=== PATIENT | female | born 1985 | race Hispanic/Latino ===

== ENCOUNTER 2017-12-19 15:06 | Day surgery (SDC) | payer MEDICAID, OTHER, SELFPAY ==
[2017-12-19 15:55] VITALS: TEMP 99.5
[2017-12-19 16:02] VITALS: BP 111/56; BMI 27.5
--- NOTE | 2017-12-19 16:23 | PDOC.FPROB ---
Addendum entered and electronically signed by Kylee Maki MD 12/19/17 18: 40: - LFTs normal. Bile acids pending. Will discharge patient with Urodiol. Discussed pt with Dr. Zhang who agrees with the plan and recommended followup in [place] in 1 week. - Discussed with patient the importance of routine follow-up and delivery with MFM in [place]. I advised pt to call tomorrow to make an appointment for both MFM and PNC. Pt expressed understanding. Ocular Care Aide line was used in order to ensure that nothing was lost in translation. Original Note: FMR OB H&P: HPI - History of Present Illness Chief Complaint: pruritus, sent from [facility] for cholestasis rule out Indentification: 32 year old @ 36.4 weeks History of Present Illness: Citlaly Guzmán is a 32 year old @ 36.4 by LMP c/w 25.6 wk sono. Primary Care Physician: ESTELA Moreland FMR OB H&P: Current - Care : 3 Para: 2 Gestational age: 36.4 Due date: 01/12/2018 Dating Criteria: 25.6 wk sono - OB Labs Blood type: O RH: positive Antibody Screen: negative HIV: negative RPR: negative HepBsAg: negative Rubella: immune Gonorrhea: negative Chlamydia: negative Pap Smear: Negative in 04/2017 1 hour gtt: 131 GBS: unknown H&H: 10.7/30.8 Platelets: 185 - Anatomy Survey Anatomy survey: Cystic adenoid malformation, intraabdominal calcifications LIVIA normal Posterior placenta FMR OB H&P: History - Past Medical History PMH: None - OB History OB History: Prior history of cholestasis in another - 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 - Surgical History Sx History: None - Social History Social History: Denies alcohol, tobacco, and drug use. Lives with and 2 children - Family History Family History: None FMR OB H&P: Medications - Current Home Medications: Medication Instructions Recorded Confirmed Type Pnv No.95/Ferrous Fum/Folic AC 1 tab PO DAILY 04/21/15 12/19/17 History [ Tablet] Ursodiol 300 mg PO BID #60 capsule 12/19/17 Rx Allergies/Adverse Reactions: Allergies Allergy/AdvReac Type Severity Reaction Status Date / Time No Known Allergies Allergy Verified 04/21/15 22:38 FMR OB H&P: ROS - Review of Systems General: denies: fever/chills ENT: denies: nasal congestion Cardiovascular: denies: chest pain Gastrointestinal: denies: abdominal pain Genitourinary (Female): reports: vaginal pressure Neurologic: denies: seizures Integumentary: reports: itching FMR OB H&P: Vital Signs - Maternal Vital signs: Vital Signs - First Documented Temp Pulse Resp BP Pulse Ox 99.5 F 110 H 16 117/58 L 95 12/19/17 15:40 12/19/17 15:40 12/19/17 15:40 12/19/17 15:40 12/19/17 15:40 - Heart Tones Baseline: 150 Variability: moderate Acceleration: present Deceleration: absent Category: category 1 [place] contractions every: absent FMR OB H&P: Physical Exam - Physical Exam General: NAD HEENT: normocephalic and atraumatic, MMM Heart: RRR, normal S1/S2 General: CTAB, no respiratory distress Abdomen: soft, gravid Musculoskeletal: FROM in all four extremities Neurological: cranial nerves II through XII intact, DTR +2, no clonus FMR OB H&P: A/P - Problem List (1) Pruritus Status: Acute Code(s): L29.9 - PRURITUS, UNSPECIFIED Assessment and Plan: Concern for cholestasis, given pt's history of cholestasis in prior . Will order Bile acids, and LFTs to determine. Dr Tracy has discussed this case with Dr. Zhang ([facility]) who recommends transfer to [place] for delivery if labs are abnormal. Discussion: Date/Time: 12/19/171622 This H&P was discussed with Dr. Tracy who agrees with the above documentation and plan. Attending Addendum - Attending Addendum Date/Time: 12/19/171948 I personally evaluated the patient and discussed the management with Dr. Maki I agree with the History, Examination, Assessment and Plan documented above with any addition or exceptions noted below. Pt presented to [facility] today with diffuse itching at 36w4d. No rash. 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 Pt discussed with Dr. Zhang of [place] [facility] who agreed with clinical symptoms and past complicated by cholestasis pt should be evaluated and delivered if evidence of cholestasis is found. LFTs normal. Bile acids will take approximately 1 week to result. Will start ursodiol empirically and have pt followup in [place] in 1 week.
[2017-12-19 16:54] LABS: ALT (SGPT) Less than 7 U/L (8-55); AST (SGOT) 16 U/L (5-34); Albumin 3.3 g/dL (3.5-5.0); Alkaline Phosphatase 367 U/L (40-150); Anion Gap 11 mmol/L (10-20); BUN (Urea Nitrogen) 7 mg/dL (7.0-18.7); Bilirubin, Total 0.4 mg/dL (0.2-1.2); Calc. Creatinine Clearance 146 mL/min (70-130); Carbon Dioxide 21 mmol/L (22-29); Chloride 107 mmol/L (98-107); Estimated GFR-MDRD Greater than 90; Globulin 3.9 g/dL (2.4-3.5); Glucose 89 mg/dL (70-105); Potassium 3.7 mmol/L (3.5-5.1); Protein, Total 7.2 g/dL (6.0-8.3); Sodium 135 mmol/L (136-145)
== END 2017-12-19 18:32 | disposition home or self-care (01) ==
LOC: L&D/OP 15:06
PROVIDERS: ATTEND Family Medicine
DX: O26.893 Other specified pregnancy related conditions, third trimester (principal); Z3A.36 36 weeks gestation of pregnancy
CPT/HCPCS: 36415; 80053; 82239

== ENCOUNTER 2019-09-15 06:41 | Emergency (ER) | payer OTHER, SELFPAY ==
[2019-09-15] MEDS ORDERED: Ondansetron PF 4 MG/2 ML Vial ONE (07:37)
[2019-09-15] MEDS ORDERED: Morphine 4 MG/ML VIAL ONE (07:37)
[2019-09-15 07:51] LABS: BHCG - Serum POSITIVE (NEGATIVE); Pregs Control Background? CLEAR/WHITE (CLR/WHITE); Pregs Control Bar Appear? YES (CONTROL BAR)
--- NOTE | 2019-09-15 07:53 | ULT ---
Sonogram right upper quadrant HISTORY: Right upper quadrant pain. FINDINGS: Gallbladder is well distended and shows internal non-shadowing stones and debris. No gallbl adder wall thickening or pericholecystic fluid. Patient was reportedly not tender over the gallbladder fossa at the time of the exam. Liver is diffusely echogenic without focal mass or intrahepatic biliary dilatation. No free fluid. IMPRESSION : Cholelithiasis. No evidence of acute biliary obstruction. Hepato-steatosis.
[2019-09-15 07:55] LABS: #Lymphocytes 2.2 thou/uL (1.20-3.40); #Monocytes 0.2 thou/uL (0.11-0.59); #Neutrophils 2.3 thou/uL (1.40-6.50); %Basophils 0.4 % (0.0-1.0); %Eosinophils 0.5 % (0.0-10.0); %Lymphocytes 46.4 % (21.0-51.0); %Neutrophils 47.8 % (42.0-75.0); Hemoglobin 14.1 g/dL (12.0-16.0); Mean Corpuscular HGB CONC 35.1 g/dL (32.0-36.0); Mean Corpuscular Hemoglobin 33.1 pg (27.0-31.0); Mean Corpuscular Volume 94.2 fL (78.0-98.0); Mean Platelet Volume 8.7 fL (7.4-10.4); Platelet Count 177 thou/uL (130-400); RBC Distribution Width 11.2 % (11.5-14.5); Red Blood Cell (RBC) Count 4.27 mill/uL (4.20-5.40); White Blood Cell (WBC) Count 4.8 thou/uL (4.8-10.8)
[2019-09-15 08:13] LABS: ALT (SGPT) 30 U/L (8-55); AST (SGOT) 29 U/L (5-34); Albumin 3.7 g/dL (3.5-5.0); Alkaline Phosphatase 128 U/L (40-110); Anion Gap 10 mmol/L (10-20); BUN (Urea Nitrogen) 8 mg/dL (7.0-18.7); Bilirubin, Total 0.4 mg/dL (0.2-1.2); Calc. Creatinine Clearance 0 mL/min (70-130); Calcium 8.9 mg/dL (7.8-10.44); Carbon Dioxide 22 mmol/L (22-29); Chloride 107 mmol/L (98-107); Estimated GFR-MDRD Greater than 90; Globulin 3.6 g/dL (2.4-3.5); Glucose 101 mg/dL (70-105); Lipase 49 U/L (8-78); Potassium 3.1 mmol/L (3.5-5.1); Protein, Total 7.3 g/dL (6.0-8.3); Sodium 136 mmol/L (136-145)
[2019-09-15] MEDS ORDERED: Potassium Chloride 20 MEQ TAB ONE (08:52)
== END 2019-09-15 09:38 | disposition home or self-care (01) ==
LOC: ERS 06:41
DX: E87.6 Hypokalemia (principal); R11.2 Nausea with vomiting, unspecified; R10.816 Epigastric abdominal tenderness; R10.811 Right upper quadrant abdominal tenderness; Z33.1 Pregnant state, incidental
CPT/HCPCS: 36415; 76705; 80053; 83690; 84484; 84703; 85025; 93005; 96361; 96374; 96375; J2270; J2405

== ENCOUNTER 2019-10-18 20:41 | Emergency (ER) | payer SELFPAY ==
[2019-10-18 21:19] LABS: Bilirubin Negative (Negative); Blood, Urine Negative (Negative); Clarity Clear (Clear); Glucose, Urine (Dipstick) Normal (Negative); Ketone, Urine 80 mg/dL (Negative); Leukocyte 75 Leu/uL (Negative); Nitrite Negative (Negative); Protein, Urine (Dipstick) 30 mg/dL (Neg-Trace); RBC/HPF 0-3 HPF (0-3); Specific Gravity, Urine 1.031 (1.002-1.036); Urobilinogen 3 mg/dL (Less than 2); WBC/HPF 0-3 HPF (0-3); pH, Urine 6.5 (5.0-9.0)
[2019-10-18 21:20] LABS: Bacteria/HPF Rare-Few HPF (None Seen)
[2019-10-18 21:28] LABS: #Eosinphils 0.1 thou/uL (0.0-0.7); #Lymphocytes 1.8 thou/uL (1.20-3.40); #Monocytes 0.3 thou/uL (0.11-0.59); #Neutrophils 5.8 thou/uL (1.40-6.50); %Basophils 0.3 % (0.0-1.0); %Lymphocytes 22.3 % (21.0-51.0); %Monocytes 4.2 % (0.0-10.0); %Neutrophils 72.2 % (42.0-75.0); Hemoglobin 13.3 g/dL (12.0-16.0); Mean Corpuscular HGB CONC 34.9 g/dL (32.0-36.0); Mean Corpuscular Hemoglobin 33.6 pg (27.0-31.0); Mean Corpuscular Volume 96.1 fL (78.0-98.0); Mean Platelet Volume 8.6 fL (7.4-10.4); Platelet Count 206 thou/uL (130-400); RBC Distribution Width 12.1 % (11.5-14.5); Red Blood Cell (RBC) Count 3.97 mill/uL (4.20-5.40)
[2019-10-18 21:47] LABS: ALT (SGPT) 15 U/L (8-55); AST (SGOT) 19 U/L (5-34); Albumin 3.9 g/dL (3.5-5.0); Alkaline Phosphatase 105 U/L (40-110); Anion Gap 13 mmol/L (10-20); BUN (Urea Nitrogen) 10 mg/dL (7.0-18.7); Bilirubin, Total 0.3 mg/dL (0.2-1.2); Calc. Creatinine Clearance 0 mL/min (70-130); Calcium 8.9 mg/dL (7.8-10.44); Carbon Dioxide 21 mmol/L (22-29); Chloride 105 mmol/L (98-107); Estimated GFR-MDRD Greater than 90; Globulin 3.7 g/dL (2.4-3.5); Glucose 94 mg/dL (70-105); Potassium 3.3 mmol/L (3.5-5.1); Protein, Total 7.6 g/dL (6.0-8.3); Sodium 136 mmol/L (136-145)
[2019-10-18] MEDS ORDERED: Potassium Chloride 20 MEQ TAB ONE (22:14)
--- NOTE | 2019-10-18 23:06 | ULT ---
EXAM: OB ultrasound COMPARISON: None HISTORY: female with abdominal pain TECHNIQUE: Multiplanar grayscale and color Doppler images were obtained in a transabdominal ult rasound. FINDINGS: There is a single live intrauterine with heart rate of 150 bpm. A limited s urvey was performed which is unremarkable. Estimated weight is 153 g. Average age of the fetus based off today's examination is 16 weeks 3 days. BPD 3.52 cm -- 16 weeks 6 days HC 12.56 cm -- 16 weeks 2 days AC 10.40 cm -- 16 weeks 3 days FL 2.11 cm -- 16 weeks 2 days The placenta is anterior and to the mother's left in location without focal abnormality. A few placen [place]anne lakes are seen within the placenta. Amniotic fluid volume is subjectively within normal limits. The cervix is normal in length. There is no evidence of placenta previa. IMPRESSION: Single live intrauterine with estimated age of 16 weeks 3 days.
== END 2019-10-19 00:06 | disposition home or self-care (01) ==
LOC: ERS 20:41
DX: O99.282 Endocrine, nutritional and metabolic diseases complicating pregnancy, second trimester (principal); E87.6 Hypokalemia; O21.9 Vomiting of pregnancy, unspecified; Z3A.16 16 weeks gestation of pregnancy
CPT/HCPCS: 36415; 76815; 80053; 81003; 81015; 84702; 85025; 87040; 87077; 87149; 96360; 96361

== ENCOUNTER 2020-03-05 22:49 | Day surgery (SDC) | payer MEDICAID ==
--- NOTE | 2020-03-06 00:24 | PDOC.LDHP ---
Labor and Delivery H&P Chief complaint: contractions HPI: 34yo @36.3wks w/ pmhx of A2GDM presents to L&D with complaint of contractions. States started at 7pm and became painful in her back and as close as 10 minutes apart prompting her to seek eval. Denies any vaginal bleeding/discharge, LOF, urinary or bowel changes. Denies any recent illness. Current gestational age (weeks): 36 (.3) Due date: 03/31/20 Dating criteria: second trimester ultrasound Grav: 4 Para: 3 Current complications: gestational diabetes Current medications: pre- vitamins Allergies/Adverse Reactions: Allergies Allergy/AdvReac Type Severity Reaction Status Date / Time No Known Allergies Allergy Verified 04/21/15 22:38 Social history: none - Physical Exam Vital signs reviewed and normal: yes General: breathing through contractions Heart: RRR Lungs: CTAB Abdomen: NTTP Extremeties: no edema FHT: category 1, variability present [place] contractions every: 4-8min - Vaginal Exam cm dilated: 1 Effacement: 50% Station: -2 - OB Labs Blood type: unknown RH: unknown Antibody Screen: unknown HIV: unknown RPR: unknown HEPSAg: unknown 1 hour GCT: unknown GBS: unknown - Assessment 34 yo with A2GDM @ 36.3 wga who presents to L&D with complaints of contractions. - Plan -: Contractions - SVE on arrival closed/thick/high - ctx: > 5min apart on toco - FHT: Cat 1 - unchanged after 2 hours, will send home with precautions on when to return to L&D Back pain - will give 1000 mg of Tylenol - encouraged tylenol and heating pad at home. Addendum - Attending - Attending Attestation Date/Time: 03/06/20 2801 I personally evaluated the patient and discussed the management with Dr. Street. I agree with the History, Examination, Assessment and Plan documented above.
[2020-03-06] MEDS ORDERED: hydrALAZINE 20 MG/ML VIAL SLOW IVP PRN (00:27)
[2020-03-06] MEDS ORDERED: Acetaminophen 500 MG TAB PO SCH (01:15)
[2020-03-06] MEDS ORDERED: FLU VACC QS2020-21(6MOS UP)/PF 60 MCG/0.5 ML SYRINGE IM ONE (09:00)
== END 2020-03-06 01:25 | disposition home or self-care (01) ==
LOC: L&D/OP 22:49
PROVIDERS: ATTEND Obstetrics & Gynecology
DX: O47.03 False labor before 37 completed weeks of gestation, third trimester (principal); O99.891 Other specified diseases and conditions complicating pregnancy; M54.9 Dorsalgia, unspecified; O24.419 Gestational diabetes mellitus in pregnancy, unspecified control; Z3A.36 36 weeks gestation of pregnancy
CPT/HCPCS: 99283

== ENCOUNTER 2020-03-22 11:58 | Outpatient (CLI) | payer SELFPAY ==
[2020-03-23 06:33] LABS: SARS-CoV-2 MS2 Positive; SARS-CoV-2 N Gene Negative; SARS-CoV-2 S Gene Negative; SARS-CoV-2 by NAA Not Detected (NotDetected); SARS-CoV-2 orf1ab Negative
== END 2020-03-22 11:59 | disposition home or self-care (01) ==
LOC: LABBT 11:58
PROVIDERS: ATTEND Student in an Organized Health Care Education/Training Program
DX: Z01.812 Encounter for preprocedural laboratory examination (principal); Z20.822 Contact with and (suspected) exposure to COVID-19
CPT/HCPCS: 87635; U0003

== ENCOUNTER 2020-03-24 05:24 | Inpatient (IN) | payer MEDICAID, OTHER, SELFPAY ==
[2020-03-24] MEDS ORDERED: Lidocaine 1% (PF) 30 ML VIAL SC PRN (06:25)
[2020-03-24] MEDS ORDERED: hydrALAZINE 20 MG/ML VIAL SLOW IVP PRN (06:25)
[2020-03-24] MEDS ORDERED: Methylergonovine 0.2 MG/ML VIAL IM PRN (06:25)
[2020-03-24] MEDS ORDERED: Misoprostol 200 MCG TAB PR PRN (06:25)
[2020-03-24] MEDS ORDERED: Ondansetron PF 4 MG/2 ML Vial IVP PRN ×2 (06:25→14:44)
[2020-03-24] MEDS ORDERED: Carboprost 250 MCG/ML AMP IM PRN (06:25)
[2020-03-24] MEDS ORDERED: Promethazine HCl 25 MG/ML VIAL IM PRN ×2 (06:25→14:44)
[2020-03-24] MEDS ORDERED: Misoprostol 100 MCG TAB VAG SCH (06:30)
[2020-03-24] MEDS: Lactated Ringer's 1,000 ML IV SCH ×3 (06:30→23:30)
[2020-03-24] MEDS ORDERED: Penicillin G Potassium 5 MILL.UNITS in Sodium Chloride 0.9% 100 ML IVPB SCH (06:30)
--- NOTE | 2020-03-24 06:58 | PDOC.FPRHP ---
- History of Present Illness Chief Complaint: mIOL due to A1GDM History of Present Illness: 34 yo at 39wks by 16.3wk US presenting for mIOL due to A1GDM. Patient is feeling baby move, denies LOF, bleeding or vaginal discharge. She reports no problems during this . Patient says she checks her blood sugars after dinner every night and they are typically 117-120 and never higher than 120. - Allergies/Adverse Reactions Allergies Allergy/AdvReac Type Severity Reaction Status Date / Time No Known Allergies Allergy Verified 04/21/15 22:38 - Home Medications Medication Instructions Recorded Confirmed Type Pnv No.95/Ferrous Fum/Folic AC 1 tab PO DAILY 04/21/15 12/19/17 History [ Tablet] Ursodiol 300 mg PO BID #60 capsule 12/19/17 Rx - History PMHx: cholestasis of , A1GDM, Hx of macrosomia, hx of ASCUS (2014), Hx of HSV1 PSHx: None FHx: Non-contributory Social: Denies alcohol, tobacco, drug use - Vital signs BP: [] HR: [] RR: [] Tmax: [] Pox: []% on [] Wt: [] FMR H&P: Upper Level - Plan Date/Time: 03/24/20 0654 I, [], have evaluated this patient and agree with findings/plan as outlined by director internal control resident. Pertinent changes/additions are listed here.
--- NOTE | 2020-03-24 07:07 | PDOC.FPROB ---
FMR OB H&P: HPI - History of Present Illness Chief Complaint: mIOL due to A1GDM History of Present Illness: 34 yo at 39wks by 16.3wk US presenting for mIOL due to A1GDM. Patient is feeling baby move, denies LOF, bleeding or vaginal discharge. She reports no problems during this . Patient says she checks her blood sugars after dinner every night and they are typically 117-120 and never higher than 120. Primary Care Physician: ESTELA Amado FMR OB H&P: Current - Care : 4 Para: 3003 Gestational age: 39.0 wks Due date: 03/31/2020 Dating Criteria: 16.3 wk sono Course/Complications: Cholestasis of , A1GDM, Hx of macrosomia, Hx of ASCUS (2014), Hx of HSV1 - OB Labs Blood type: O RH: positive Antibody Screen: negative HIV: negative RPR: negative HepBsAg: negative Rubella: immune Quad screen: unknown Urine drug screen: not done Gonorrhea: negative Chlamydia: negative Pap Smear: NILM, HPV + (not 16 or 18) 3 hour GTT: 2hr: 95,155,120 A1c: 4.8 GBS: positive H&H: 02/15.9 Platelets: 181 - Additional Ultrasound Additional: 12/03/2019 (MFM): placental lakes 03/05/2020: [place] 82.8%, left lateral placenta FMR OB H&P: History - Past Medical History PMH: cholestasis of in previous two pregnancies which were reason for induction - OB History OB History: 3 prior full term vaginal deliveries, Hx of 4th degree laceration - 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 Recommended repeat cotesting in 3 years. - Surgical History Sx History: None - Social History Social History: Denies tobacco, alcohol, or drug use - Family History Family History: Non-contributory FMR OB H&P: Medications - Current Home Medications: Medication Instructions Recorded Confirmed Type Pnv No.95/Ferrous Fum/Folic AC 1 tab PO DAILY 04/21/15 03/24/20 History [ Tablet] Allergies/Adverse Reactions: Allergies Allergy/AdvReac Type Severity Reaction Status Date / Time No Known Allergies Allergy Verified 04/21/15 22:38 FMR OB H&P: ROS - Review of Systems General: denies: fever/chills Eyes: denies: vision changes ENT: denies: nasal congestion, rhinorrhea Cardiovascular: denies: chest pain, edema Respiratory: denies: cough, congestion, shortness of breath Gastrointestinal: denies: abdominal pain, nausea, vomiting Genitourinary (Female): denies: dysuria, vaginal discharge, vaginal bleeding, contractions Musculoskeletal: denies: tenderness Neurologic: denies: weakness, headache Integumentary: denies: rash Endocrine: denies: polyuria Hematologic/Lymphatic: denies: prolonged or excessive bleeding FMR OB H&P: Vital Signs - Maternal Vital signs: BP 122/65 - Heart Tones Baseline: 130 Variability: moderate Acceleration: present Deceleration: absent Category: category 1 FMR OB H&P: Physical Exam - Physical Exam General: NAD, awake, alert and oriented HEENT: normocephalic and atraumatic, grossly normal vision, grossly normal hearing Neck: FROM Heart: RRR, no murmurs/rubs/gallops, pulses present, no edema General: CTAB, no respiratory distress Abdomen: soft, gravid, non-tender Musculoskeletal: FROM in all four extremities Neurological: no focal deficit Skin: no rash Lymphatic: no unusual bruising or bleeding Psychiatric: intact recent and remote memory, good judgement and insight, normal mood and affect - Pelvic Exam Vulva: normal hair distribution, no lesions, no blood SVE: 1/thick/-2 Lawson score: 4 Membranes: intact FMR OB H&P: A/P Discussion: Date/Time: 03/24/20 0706 34 yo presenting at 39.0wks by 16.3wk sono presenting for mIOL for A1GDM. mIOL 2/2 A1GDM -FHT 130, cat 1 tracing -1/thick/-2 @0750 -cytotec placed A1GDM -A1C 4.8 -Patient reports postprandial dinner glucose readings are 117-120 Cholestasis of -Reason for induction in two prior pregnancies -Has been experiencing increasing itching this , bile acid and CMP wnl on 02/25. Bile acid from 03/17 pending. Hx of Macrosomia -Clinic documentation states 9-10lb baby -[employer] reviewed. 2 deliveries here were 6lb babies, unsure where third baby was delivered. 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 Carpenter who agree with the above documentation and plan.
[2020-03-24 07:11] VITALS: BMI 29.5
[2020-03-24 07:16] LABS: Hemoglobin 11.2 g/dL (12.0-16.0); Mean Corpuscular HGB CONC 33.3 g/dL (32.0-36.0); Mean Corpuscular Hemoglobin 30.7 pg (27.0-31.0); Mean Corpuscular Volume 92.3 fL (78.0-98.0); Platelet Count 187 thou/uL (130-400); Red Blood Cell (RBC) Count 3.65 mill/uL (4.20-5.40); White Blood Cell (WBC) Count 6.6 thou/uL (4.8-10.8)
[2020-03-24 07:58] LABS: HBSAg Index 0.13 S/CO (0-0.99); Hep B Surf Ag Non-Reactive S/CO (NonReactive)
[2020-03-24 07:59] LABS: Syphilis Antibody Nonreactive (Nonreactive); Syphilis Antibody Index 0.03 S/CO (<1.00 Non-Reactive)
[2020-03-24] MEDS: Penicillin G 2.5 MILL.units 2.5 MILL.UNITS in Premix Bag 1 BAG IVPB SCH ×4 (11:30→23:30)
[2020-03-24] MEDS ORDERED: Bupivacaine 0.25% HCL 30 ML VIAL ONE (11:41)
--- NOTE | 2020-03-24 12:04 | PDOC.LDPN ---
Labor & Delivery Progress Note - Subjective Subjective: comfortable - Objective Vital signs reviewed and normal: yes General: NAD, resting SVE: 1/thick/-2 Dilation: 1 Effacement: 0% Station: -1 FHT: category 1, acceleration absent, absent or minimal variables [place] contractions every: 2-3 minutes Plan: continue plan of care -: 34 yo presenting at 39.0wks by 16.3wk sono presenting for mIOL for A1GDM. mIOL 2/2 A1GDM -FHT 130, cat 1 tracing -1/thick/-2 @0750 -cytotec #1 placed 0515 -1/thick/-2 @1150. Cat 1 tracing, edwina ~2-[address] 2nd cytotec. Nursing will continue to monitor contractions. Will place balloon at this time. A1GDM -A1C 4.8 -Patient reports postprandial dinner glucose readings are 117-120 Cholestasis of -Reason for induction in two prior pregnancies -Has been experiencing increasing itching this , bile acid and CMP wnl on 02/25. Bile acid from 03/17 pending. Hx of Macrosomia -Clinic documentation states 9-10lb baby -[employer] reviewed. 2 deliveries here were 6lb babies, unsure where third baby was delivered. 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
[2020-03-24] MEDS ORDERED: Butorphanol Tartrate 1 MG/ML VIAL ONE (12:31)
[2020-03-24] MEDS: Butorphanol Tartrate 1 MG/ML VIAL SLOW IVP PRN ×2 (12:35→13:59)
[2020-03-24] MEDS ORDERED: Fentanyl 4 mcg/Bup 0.1% Cadd 100 ML ONE ×2 (13:57→22:09)
[2020-03-24] MEDS ORDERED: Naloxone HCl 0.4 mg/ml Vial IVP PRN ×2 (14:44)
[2020-03-24] MEDS ORDERED: Lactated Ringer's 500 ML IV PRN (14:44)
[2020-03-24] MEDS ORDERED: ePHEDrine 50 MG/ML VIAL SLOW IVP PRN (14:44)
[2020-03-24] MEDS ORDERED: diphenhydrAMINE 50 MG/ML VIAL IVP PRN (14:44)
[2020-03-24] MEDS ORDERED: Communication Order-Pharmacy FS SCH (14:45)
[2020-03-24] MEDS ORDERED: Fentanyl 4 mcg/Bupivacaine 0.1% Cassette 100 ML EPIDURAL SCH (14:45)
--- NOTE | 2020-03-24 17:02 | PDOC.LDPN ---
Labor & Delivery Progress Note - Subjective Subjective: comfortable - Objective Vital signs reviewed and normal: yes General: NAD, resting Dilation: 5 Effacement: 25% Station: -2 FHT: category 1 (140/mod/+ accels/no decels) [place] contractions every: q3min Plan: continue plan of care -: 34yo at 39.0wks by 16.3wk US in labor - Balloon now out, SVE 08/10/-2. Will start Pitocin - FHTs cat 1 140 baseline - Continue serial cervical exams
[2020-03-24] MEDS: NS w/ Oxytocin 30 units 1,000 ML IV PRN (17:04)
[2020-03-24] MEDS: Misoprostol 100 MCG TAB VAG SCH ×2 (19:52→23:30)
--- NOTE | 2020-03-24 22:45 | PDOC.LDPN ---
Labor & Delivery Progress Note - Subjective Subjective: comfortable - Objective Vital signs reviewed and normal: yes General: NAD, resting Uterine fundus: non tender SVE: 6.5/50/-2 FHT: category 1, variability present [place] contractions every: 5min with coupling -: 34 yo presenting at 39.0wks by 16.3wk sono presenting for mIOL for A1GDM. mIOL 2/2 A1GDM -FHT 130, cat 1 tracing -1/thick/-2 @0750 -cytotec #1 placed 0515 -1/thick/-2 @1150. Cat 1 tracing, edwina ~2-[address] 2nd cytotec. Nursing will continue to monitor contractions. Will place balloon at this time. -balloon out at 1700 -6.5/50/-2 @ 1900 -6.5/50/-2@ 2230. FHT: Cat 1, ctx q5min with coupling. Epidural in place, pt comfortable. A1GDM -A1C 4.8 -Patient reports postprandial dinner glucose readings are 117-120 Cholestasis of -Reason for induction in two prior pregnancies -Has been experiencing increasing itching this , bile acid and CMP wnl on 02/25. Bile acid from 03/17 pending. Hx of Macrosomia -Clinic documentation states 9-10lb baby -[employer] reviewed. 2 deliveries here were 6lb babies, unsure where third baby was delivered. 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
[2020-03-24] MEDS: Acetaminophen 325 MG TAB PO PRN (23:35)
--- NOTE | 2020-03-25 00:55 | PDOC.LDPN ---
Labor & Delivery Progress Note - Objective Vital signs reviewed and normal: yes General: NAD Uterine fundus: non tender SVE: /-1 FHT: category 1, variability present AROM: clear fluid -: 34 yo presenting at 39.0wks by 16.3wk sono presenting for mIOL for A1GDM. mIOL 2/ A1GDM -FHT 130, cat 1 tracing -1/thick/-2 @0750 -cytotec #1 placed 0515 -1/thick/-2 @1150. Cat 1 tracing, edwina ~2-[address] 2nd cytotec. Nursing will continue to monitor contractions. Will place balloon at this time. -balloon out at 1700 -6.5/50/-2 @ 1900 -6.5/50/-2@ 2230. FHT: Cat 1, ctx q5min with coupling. Epidural in place, pt comfortable. -/ @ 0045. AROM. FHT Cat 1 A1GDM -A1C 4.8 -Patient reports postprandial dinner glucose readings are 117-120 Cholestasis of -Reason for induction in two prior pregnancies -Has been experiencing increasing itching this , bile acid and CMP wnl on 02/25. Bile acid from 03/17 pending. Hx of Macrosomia -Clinic documentation states 9-10lb baby -[employer] reviewed. 2 deliveries here were 6lb babies, unsure where third baby was delivered. 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
[2020-03-25] MEDS: Misoprostol 100 MCG TAB VAG SCH ×2 (02:11→03:46)
[2020-03-25] MEDS: NS w/ Oxytocin 30 units 1,000 ML IV PRN (02:55)
[2020-03-25] MEDS ORDERED: Misoprostol 200 MCG TAB ONE (02:59)
[2020-03-25] MEDS ORDERED: Methylergonovine 0.2 MG/ML VIAL ONE (02:59)
[2020-03-25] MEDS: Penicillin G 2.5 MILL.units 2.5 MILL.UNITS in Premix Bag 1 BAG IVPB SCH (03:46)
--- NOTE | 2020-03-25 03:46 | PDOC.OPDEL ---
OB Operative/Delivery Note Delivery Dr/Surgeon: Rodrick Rodriguez Lichorad Pre-Delivery Diagnosis: medically indicated induction (cholestasis of , A1GDM) Procedure/Post Delivery Dx: spontaneous vaginal delivery Weeks gestation: 39 Anesthesia: epidural - Additional Findings/Plan Placenta delivered: spontaneous Repaired Obstetrical Laceration: none Estimated blood loss: QBL 412mL Compilations/Other Findings: Delivering Physician: Dr Rodriguez, Dr Mensah Attending Dr Taveras Procedure: Spontaneous Vaginal Delivery Anesthesia: epidural QBL: 412 ml Pre-op Diagnosis: 1. mIOL 2/2 cholestasis of and A1GDM 2.Term intrauterine 3. A1GDM 4. Cholestasis of 5. GBS + Post-op Diagnosis: 1. mIOL 2/2 cholestasis of and A1GDM- delivered 2.Term intrauterine - delivered 3. A1GDM 4. Cholestasis of 5. GBS + - adequate treatment Indications: A 34y/o female presents to L&D for mIOL due to A1GDM and cholestasis of Delivery Note: This is 34yo F now 4 @ 39.1 wks who delivered a viable F at 0251. Following an uneventful antepartum course, a vigorous female was delivered over an intact perineum in the OA position. Anterior Shoulder and then remainder of the body delivered. No nuchal cord. The head was held down and mouth and nares were bulb suctioned. Cord clamped and cut and cord blood collected. Placenta delivered intact with a 3 vessel cord noted. Fundal massage was performed. There was some lower uterine atony so 800mcg cytotec CO and 0.2mg methergine IM were given and hemostasis achieved. The cervix and vagina were inspected and found to be free of lacerations. went to nursery in good condition for routine care. Apgars were 9/9 at 1 & 5 minutes, respectively. Patient tolerated delivery well and went to after routine recovery/care. Addendum - Attending - Attending Attestation Date/Time: 03/25/20 0524 I was present and assisted with the SVDof a viable female infant over an intact perineum to this 34 yo @39 weeks. Apgars 9/9. Placenta delivered spontaneously and intact. 3V cord. No epis or lacerations. Mild uterine atony resolved with bimanual massage, methergine and cytotec. [id number]. and mother in stable condition. Residents: Ananda.
[2020-03-25] MEDS: Acetaminophen 325 MG TAB PO PRN ×2 (04:30→09:44)
[2020-03-25] MEDS ORDERED: NS / Oxytocin 40 units/1000ml 1,000 ML IV SCH (05:17)
[2020-03-25] MEDS ORDERED: Bisacodyl 10 MG SUPP PR PRN (05:17)
[2020-03-25] MEDS ORDERED: hydrALAZINE 20 MG/ML VIAL SLOW IVP PRN (05:17)
[2020-03-25] MEDS ORDERED: Milk Of Magnesia 30 ML UDCUP PO PRN (05:17)
[2020-03-25] MEDS ORDERED: Lanolin Ointment 7 GM TUBE TOP PRN (05:17)
[2020-03-25] MEDS: Ibuprofen 800 MG TAB PO SCH ×4 (06:43→21:40)
--- NOTE | 2020-03-25 07:05 | PDOC.PP ---
Post Progress Note Post Day #: 0 Subjective: Patient is doing well this morning. She reports minimal pain and lochia and has no complaints. She has not made a decision regarding contraception. PO intake tolerated: yes Flatus: no Ambulation: no Vital Signs (12 hours) Temp Pulse Resp BP 03/25/20 05:55 99.3 F 74 20 137/65 Weight Weight 68.492 kg Tmax 101 - Physical Examination General: NAD Cardiovascular: no m/r/g, RRR Respiratory: clear to auscultation bilaterally Abdominal: + bowel sounds, lochia, no distention, appropriately TTP Fundus firm & at: umbilicus Neurological: no gross focal deficits Psychiatric: A&Ox3, normal affect Result Diagrams: 03/24/20 07:03 Additional Labs: Post Labs Hep Bs Antigen Non-Reactive S/CO (NonReactive) 03/24/20 07:03 Blood Type O POSITIVE 03/24/20 08:13 - Assessment/Plan 34 yo presenting at 39.1 wks by 16.3wk sono presenting for mIOL for A1GDM. PPD #0 following at 39.1wks @ 0251 on 03/25/2020 -Pain well controlled -Minimal lochia -Has not made decision regarding contraception Suspected Endometritis -Tmax 101 oral, 100.8 axillary this AM -All other VS wnl -Abdomen appropriately tender to palpation -Will start on gentamicin and clinda, continue for 24 hours -CBC pending A1GDM -A1C 4.8 -Patient reports postprandial dinner glucose readings are 117-120 Cholestasis of -Reason for induction in two prior pregnancies -Has been experiencing increasing itching this , bile acid and CMP wnl on 02/25. Bile acid from 03/17 pending. Hx of Macrosomia -Clinic documentation states 9-10lb baby -[employer] reviewed. 2 deliveries here were 6lb babies, unsure where third baby was delivered. 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
[2020-03-25] MEDS: Ferrous Sulfate 325 MG TAB PO SCH ×2 (08:29→16:13)
[2020-03-25] MEDS: Prenatal Vitamin 1 TAB PO SCH (08:33)
[2020-03-25] MEDS: Docusate Calcium (SURFAK) 240 MG CAP PO SCH ×2 (08:33→21:40)
[2020-03-25] MEDS ORDERED: Adacel (T-DAP) 0.5 ML SYRINGE IM ONE (09:00)
[2020-03-25 09:59] LABS: #Eosinphils 0.1 thou/uL (0.0-0.7); #Lymphocytes 1.7 thou/uL (1.20-3.40); #Monocytes 0.5 thou/uL (0.11-0.59); #Neutrophils 7.5 thou/uL (1.40-6.50); %Basophils 0.3 % (0.0-1.0); %Eosinophils 0.5 % (0.0-10.0); %Lymphocytes 17.4 % (21.0-51.0); %Neutrophils 76.7 % (42.0-75.0); Hemoglobin 11.6 g/dL (12.0-16.0); Mean Corpuscular HGB CONC 33.9 g/dL (32.0-36.0); Mean Corpuscular Hemoglobin 31.2 pg (27.0-31.0); Mean Corpuscular Volume 92.1 fL (78.0-98.0); Mean Platelet Volume 9.6 fL (7.4-10.4); Platelet Count 164 thou/uL (130-400); RBC Distribution Width 12.8 % (11.5-14.5); Red Blood Cell (RBC) Count 3.73 mill/uL (4.20-5.40); White Blood Cell (WBC) Count 9.8 thou/uL (4.8-10.8)
[2020-03-25] MEDS ORDERED: Clindamycin/D5W 900 MG in Premix Bag 1 BAG IVPB SCH (10:00)
[2020-03-25] MEDS ORDERED: Sodium Chloride 0.9% 10 ML ONE ×2 (10:04→13:20)
[2020-03-25] MEDS: Gentamicin 270 MG in Sodium Chloride 0.9% 100 ML IVPB SCH (11:11)
[2020-03-25] MEDS: AMPicillin 2 GM in Sodium Chloride 0.9% 100 ML IVPB SCH ×3 (12:13→23:54)
[2020-03-25] MEDS: Clindamycin/D5W 900 MG in Premix Bag 1 BAG IVPB SCH (17:08)
[2020-03-25] MEDS ORDERED: Sodium Chloride 0.9% 20 ML ONE (23:44)
[2020-03-26] MEDS: Clindamycin/D5W 900 MG in Premix Bag 1 BAG IVPB SCH ×2 (00:31→08:33)
[2020-03-26] MEDS: Ibuprofen 800 MG TAB PO SCH ×2 (05:36→13:38)
[2020-03-26] MEDS: AMPicillin 2 GM in Sodium Chloride 0.9% 100 ML IVPB SCH ×2 (05:36→13:38)
--- NOTE | 2020-03-26 06:30 | PDOC.PP ---
Post Progress Note Post Day #: 1 Subjective: Patient is feeling well this morning. Her pain is well-controlled, her bleeding is less than her period, she has been passing gas. Patient desires nexplanon for contraception. Patient denies fever or chills. PO intake tolerated: yes Flatus: yes Ambulation: yes Vital Signs (12 hours) Temp Pulse Resp BP Pulse Ox 03/26/20 00:00 98.7 F 71 16 118/58 L 99 03/25/20 19:35 98.6 F 63 12 108/58 L 98 Weight Weight 68.492 kg - Physical Examination General: NAD Cardiovascular: no m/r/g, RRR Respiratory: clear to auscultation bilaterally, non-labored breathing Abdominal: + bowel sounds, lochia, appropriately TTP Fundus firm & at: below umbilicus Neurological: no gross focal deficits Psychiatric: A&Ox3, normal affect Result Diagrams: 03/25/20 09:50 Additional Labs: Post Labs Hep Bs Antigen Non-Reactive S/CO (NonReactive) 03/24/20 07:03 Blood Type O POSITIVE 03/24/20 08:13 - Assessment/Plan 34 yo presenting at 39.1 wks by 16.3wk sono presenting for mIOL for A1GDM. PPD #1 following at 39.1wks @ 0251 on 03/25/2020 -Pain well controlled -Minimal lochia -Passing gas -nexplanon for contraception Suspected Endometritis -Tmax 101 oral, afebrile since yesterday morning. -Abdomen appropriately tender to palpation -Gent, clinda, amp started 03/25 -CBC wnl A1GDM -A1C 4.8 -Patient reports postprandial dinner glucose readings are 117-120 Cholestasis of -Reason for induction in two prior pregnancies -Has been experiencing increasing itching this , bile acid and CMP wnl on 02/25. Bile acid from 03/17 pending. Hx of Macrosomia -Clinic documentation states 9-10lb baby -[employer] reviewed. 2 deliveries here were 6lb babies, unsure where third baby was delivered. 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
[2020-03-26] MEDS: Ferrous Sulfate 325 MG TAB PO SCH (07:07)
[2020-03-26] MEDS: Prenatal Vitamin 1 TAB PO SCH (08:30)
[2020-03-26] MEDS: Docusate Calcium (SURFAK) 240 MG CAP PO SCH (08:30)
[2020-03-26 11:32] VITALS: BP 104/60; TEMP 97.5
[2020-03-26] MEDS ORDERED: Sodium Chloride 0.9% 30 ML ONE (12:07)
[2020-03-26] MEDS: Gentamicin 270 MG in Sodium Chloride 0.9% 100 ML IVPB SCH (12:10)
== END 2020-03-26 15:00 | disposition home or self-care (01) | DRG 805 ==
LOC: L&D 05:24 → 3SW 03-25 05:57
PROVIDERS: ADMIT Family Medicine; ATTEND Family Medicine
PROC: 0U7C7ZZ Dilation of Cervix, Via Natural or Artificial Opening (ICD-10-PCS; 2020-03-24)
PROC: 3E033VJ Introduction of Other Hormone into Peripheral Vein, Percutaneous Approach (ICD-10-PCS; 2020-03-24)
PROC: 3E0P7VZ Introduction of Hormone into Female Reproductive, Via Natural or Artificial Opening (ICD-10-PCS; 2020-03-24)
PROC: 10907ZC Drainage of Amniotic Fluid, Therapeutic from Products of Conception, Via Natural or Artificial Opening (ICD-10-PCS; 2020-03-24)
PROC: 10E0XZZ Delivery of Products of Conception, External Approach (ICD-10-PCS; principal; 2020-03-25)
DX: O24.429 Gestational diabetes mellitus in childbirth, unspecified control (principal); K83.1 Obstruction of bile duct; Z37.0 Single live birth; Z3A.39 39 weeks gestation of pregnancy; O41.1230 Chorioamnionitis, third trimester, not applicable or unspecified; O26.62 Liver and biliary tract disorders in childbirth; Z20.822 Contact with and (suspected) exposure to COVID-19; Z79.899 Other long term (current) drug therapy; O99.824 Streptococcus B carrier state complicating childbirth; O62.2 Other uterine inertia
CPT/HCPCS: 36415; 51702; 85025; 85027; 86780; 86850; 86900; 86901; 87340; J0290; J0595; J1580; J2210; J2540; J2590; J3490; S0020

== ENCOUNTER 2023-09-04 05:11 | Emergency (ER) | payer SELFPAY ==
[2023-09-04] MEDS ORDERED: HYDROcodone/Acetaminophen 10/325 mg Tablet ONE (05:42)
== END 2023-09-04 06:02 | disposition home or self-care (01) ==
LOC: ERS 05:11
DX: H60.502 Unspecified acute noninfective otitis externa, left ear (principal); H66.92 Otitis media, unspecified, left ear
CPT/HCPCS: 99282